=== PATIENT | male | born 1980 | race Caucasian/White ===

== ENCOUNTER 2018-10-22 10:58 | Emergency (ER) | payer OTHER ==
[~2018-10-22] VITALS: Ht 170.2 cm; Wt 90.7 kg
[2018-10-22] MEDS ORDERED: OMEPRAZOLE20 MG PO (11:33)
[2018-10-22] MEDS ORDERED: NORCO 5-325 TA1 EACH PO (12:28)
== END 2018-10-22 13:44 | disposition home or self-care (01) ==
LOC: ED 10:58
PROC: 2W3QX1Z Immobilization of Right Lower Leg using Splint (ICD-10-PCS; principal; 2018-10-22)
DX: S82.434A Nondisplaced oblique fracture of shaft of right fibula, initial encounter for closed fracture (principal); Z79.899 Other long term (current) drug therapy; X50.9XXA Other and unspecified overexertion or strenuous movements or postures, initial encounter
CPT/HCPCS: 29515; 73610; 99283-25